=== PATIENT | male | born 1970 | race Caucasian/White ===

== ENCOUNTER → 2016-12-27 | Outpatient (CLI) | payer OTHER ==
[2016-12-27 17:29] LABS: BASO % 1.3 %; BASO ABS # 0.09 K/uL (0-0.2); COMPLETE YES; EOS % 1.6 %; HEMATOCRIT 44.4 % (42-52); IG% 0.4 %; LYMPH % 24.2 %; LYMPH ABS # 1.65 K/uL (1.2-3.4); MEAN CELL VOLUME 93.3 fL (80-100); MEAN CORPUSCULAR HEMOGLOBIN 30.3 pg (25-34); MEAN CORPUSCULAR HGB CONC 32.4 g/dl (32-36); MEAN PLATELET VOLUME 12.4 fL (7.4-10.4); MONO % 8.6 %; NEUT % 63.9 %; PLATELET COUNT 171 K/uL (130-400); RED BLOOD COUNT 4.76 M/uL (4.7-6.1); WHITE BLOOD COUNT 6.83 K/uL (4.8-10.8)
[2016-12-27 17:43] LABS: ALT/SGPT 28 U/L (12-78); AST/SGOT 14 U/L (15-37); BLOOD UREA NITROGEN 20 mg/dl (7-18); BUN/CREATININE RATIO 15.6 (10-20); CARBON DIOXIDE 30 mmol/L (21-32); CHLORIDE 110 mmol/L (98-107); GLUCOSE 114 mg/dl (70-99); POTASSIUM 4.8 mmol/L (3.5-5.1); SODIUM 144 mmol/L (136-145)
[2016-12-27 17:52] LABS: ALB/GLOB RATIO 1.3 (0.9-2); ALKALINE PHOSPHATASE 58 U/L (45-117); CHOLESTEROL 198 mg/dl (0-200); CHOLESTEROL/HDL RATIO 4.5; HDL CHOLESTEROL 44 mg/dl; LDL CHOLESTEROL CALCULATED 126 mg/dl; TRIGLYCERIDES 139 mg/dl (0-150); VERY LOW DENSITY LIPOPROT CALC 28 mg/dl
[2016-12-28 06:02] LABS: ESTIMATED AVERAGE GLUCOSE 120 mg/dl; HA1C FLAG Normal (Normal)
== END | disposition home or self-care (01) ==
LOC: C.LABBFT 12:36
PROVIDERS: ATTEND Physician Assistant Medical
DX: E78.5 Hyperlipidemia, unspecified (principal); R73.01 Impaired fasting glucose

== ENCOUNTER 2020-07-03 21:12 | Inpatient (IN) ==
--- NOTE | 2020-07-03 21:47 | Emergency Department Note ---
History of Present Illness General Chief complaint: Back Injury/Pain Stated complaint: BACK PAIN, NUMBNESS/PAIN IN LE Time Seen by Provider: 07/03/20 21:39 History of Present Illness Maximum Pain Intensity: 7 This 50-year-old presents to the ER complaining of low back pain that is getting worse with bilateral thigh perineum and genitalia numbness for the past 4 days who is had chronic back pain for quite some time and follows with Dr. Ambrose Location: Low back Quality: None Severity: Moderate Duration: 4 days Timing: Started 4 days ago Context: She was concerned and came in Modifying factors: better with rest; worse with activity patient had MRI 3 months ago. He has already been on a steroid taper. He has had a back injection with minimal improvement. Patient denies chest pain, dyspnea, fevers, IV drug abuse, leg weakness, loss of bowel bladder control. Home Medications Medication Instructions Recorded Confirmed Type amlodipine 5 mg tablet 5 mg PO HS #90 tab 03/14/20 07/03/20 Rx paroxetine HCl 20 mg tablet 20 mg PO HS #90 tab 03/14/20 07/03/20 Rx cyclobenzaprine 10 mg tablet 10 mg PO TID PRN #30 tab 06/22/20 07/03/20 Rx cetirizine [Zyrtec] 10 mg PO DAILY 07/03/20 07/03/20 History Allergies Allergy/AdvReac Type Severity Reaction Status Date / Time No Known Drug Allergies Allergy Verified 07/03/20 23:13 Past Med/Surg History Medical History Anxiety Asthma Hyperlipidemia Hypertension Impaired fasting glucose Lumbar disc disease Lumbar radiculopathy Rotator cuff tear, left Rotator cuff tear, right Sleep apnea Bipap Surgical History No history of previous surgery Family History Father Diabetes Atrial fibrillation Myocardial infarction Grandfather (Paternal) Diabetes Leukemia Other No family history of adverse response to anesthesia Denies family history of Ovarian cancer Prostate cancer Breast cancer Colorectal cancer Social History Smoking Status: Never smoker Cigarettes Per Day: 2 cigars per week; Second Hand Exposure: No; Hx Alcohol Use: Yes Alcohol type: beer Hx Substance Use: No Preferred Language: Ukrainian Communication Ability: Effective Visual Impairment: No Limitations Hearing Ability: Normal Lead Pastor Required: No Beliefs That Will Affect Care: None marital status: Current Living Situation: Spouse current occupational status: employed Feels Safe at Home: Yes caffeine: Yes during the past year weight has: remained stable Dental Care, Regularly: Yes Physical Activity Frequency: Does not Exercise Seatbelt Use: always Sunscreen Use: No Assistive Devices: BiPap Review of Systems A total of 10 systems reviewed and were otherwise negative Physical Exam Vital Signs Vital Signs - 24 hr 07/03/20 21:15 07/03/20 22:59 Temperature 37.4 C Temperature Source Oral Pulse Rate 108 H Pulse Rate [Apical] 88 Respiratory Rate 20 18 Respiratory Effort / Characteristics Non-Labored Spontaneous Respiratory Depth Normal Blood Pressure 190/105 H Blood Pressure [Right Arm] 171/101 H Blood Pressure Mean 133 Blood Pressure Mean [Right Arm] 124 Pulse Oximetry 97 99 Oxygen Delivery Method Room Air Room Air Sepsis Recent Fever Within 48 Hours No Sepsis New/Unexplained Change in Mental Status No Sepsis Action Taken by Nursing No Action Required VITALS: Vitals are noted on the nurse's note and reviewed by myself. Vital signs stable. GENERAL: Pleasant male moving all extremities, in no acute distress, nondiaphoretic, well-developed well-nourished. SKIN: Capillary reflex less than 2 seconds. HEENT: Normocephalic. PERRLA. EOMI. Nares patent. Mucous membranes moist. Neck is supple without nuchal rigidity. HEART: Regular rate and rhythm without murmurs gallops or rubs. LUNGS: Clear to auscultation bilaterally without wheezes, rales or rhonchi. No retractions or accessory muscle use. ABDOMEN: Positive bowel sounds x 4. Normal tympanic percussion. Soft, nontender, without masses or organomegaly. Flores sign negative. No guarding or rebound tenderness. MUSCULOSKELETAL: No gross musculoskeletal defects. No thoracic or lumbar tenderness on exam. Negative straight leg raise bilateral. Patient can plantarflex and dorsiflex. NEURO: Patient was alert and oriented to person place and time. Subjective decreased feeling to the thighs genitalia. Deep tendon reflexes 2+ patella bilaterally. No focal neurological deficits. Course Administered Medications Discontinued Medications Dexamethasone (Dexamethasone Sod Inj 10 Mg/Ml Vial) 8 mg IV NOW ONE Stop: 07/03/20 23:10 Last Admin: 07/03/20 23:18 Dose: 8 mg Documented by: [id number] Medical Decision Making Medical Records Attestation: I reviewed the patient's medical records. Home Medications Current Medication List: was personally reviewed by me Laboratory Data Attestation: I reviewed the patient's lab results. Result diagrams: 07/03/20 21:50 07/03/20 21:50 Lab Results 07/03/20 07/03/20 07/03/20 Range/Units 21:50 21:50 22:50 WBC 9.61 (4.8-10.8) K/uL RBC 4.42 L (4.7-6.1) M/uL Hgb 13.8 L (14.0-18.0) g/dL Hct 42.0 (42-52) % MCV 95.0 (80-100) fL MCH 31.2 (25-34) pg MCHC 32.9 (32-36) g/dL RDW Std Deviation 50.8 H (36.4-46.3) fL RDW Coeff of Elizabeth 14.6 H (11.5-14.5) % Plt Count 182 (130-400) K/uL MPV 11.2 H (7.4-10.4) fL Immature Gran % (Auto) 0.6 % Neut % (Auto) 76.2 % Lymph % (Auto) 15.3 % Bee % (Auto) 6.8 % Eos % (Auto) 0.8 % Baso % (Auto) 0.3 % Neut # (Auto) 7.32 H (1.4-6.5) K/uL Lymph # (Auto) 1.47 (1.2-3.4) K/uL Bee # (Auto) 0.65 H (0.11-0.59) K/uL Eos # (Auto) 0.08 (0-0.5) K/uL Baso # (Auto) 0.03 (0-0.2) K/uL Immature Gran # (Auto) 0.06 H (0.00-0.02) K/uL Sodium 140 (136-145) mmol/L Potassium 4.1 (3.5-5.1) mmol/L Chloride 109 H (98-107) mmol/L Carbon Dioxide 27 (21-32) mmol/L Anion Gap 3.0 (3-11) BUN 27 H (7-18) mg/dl Creatinine 1.06 (0.6-1.4) mg/dl Est Cr Clr Drug Dosing 105.8 ml/min Est GFR ( Amer) 93.7 Est GFR (Non-Af Amer) 80.9 BUN/Creatinine Ratio 25.7 H (10-20) Glucose 113 H (70-99) mg/dl Calcium 8.7 (8.5-10.1) mg/dl Total Bilirubin 0.4 (0.2-1) mg/dl AST 13 L (15-37) U/L ALT 21 (12-78) U/L Alkaline Phosphatase 57 (45-117) U/L Total Creatine Kinase 183 (39-308) U/L Total Protein 6.3 L (6.4-8.2) gm/dl Albumin 3.5 (3.4-5.0) gm/dl Globulin 2.8 (2.5-4.0) gm/dl Albumin/Globulin Ratio 1.2 (0.9-2) Urine Color Yellow Urine Appearance Turbid A (Clear) Urine pH 7.0 (4.5-7.5) Ur Specific [place] 1.025 (1.000-1.030) Urine Protein Negative (Negative) Urine Glucose (UA) Negative (Negative) Urine Ketones Negative (Negative) Urine Blood Negative (Negative) Urine Nitrite Negative (Negative) Urine Bilirubin Negative (Negative) Urine Urobilinogen Negative (Negative) Ur Leukocyte Esterase Negative (Negative) Urine WBC (Auto) 1-5 (0-5) /hpf Urine RBC (Auto) 0-4 (0-4) /hpf U Hyaline Cast (Auto) 1-5 (0-5) /lpf U Epithel Cells (Auto) 5-10 H (0-5) /lpf Urine Bacteria (Auto) Negative (Negative) Imaging Data Attestation: I personally reviewed and interpreted this imaging study as follows: MDM Narrative Prior records/ancillary studies reviewed. Triage Nursing notes reviewed. Additional history obtained from nursing. The patient's history was concerning for back pain. Differential diagnosis: Etiologies such as musculoskeletal, disc herniation, fracture, aortic disease, metastatic disease, cord compression, discitis, infection, renal colic, gastrointestinal, acute exacerbation of chronic back pain, sciatica, cauda equina, as well as others were entertained. Physical findings: As above. No focal neurologic findings noted. ER treatment provided: Patient was observed On reassessment the patient felt better. Diagnostics interpreted by me: The labs revealed mild hyperglycemia that DKA. Creatinine 1. No leukocytosis Imaging studies: MRI L SPINE : There is a large central/left central disc extrusion at L4-L5 with inferior migration along the posterior margin of the L5 vertebral body, resulting in effacement of the thecal sac and severe spinal stenosis at this level. Small disc bulges noted at L3-L4 and L5-S1 without high-grade spinal stenosis. No high-grade neural foraminal stenosis. Radiologist: Olimpia Ramirez M.D. MRI OF THE LUMBAR SPINE WITHOUT CONTRAST CLINICAL HISTORY: M54.5 - Low back pain COMPARISON STUDY: Lumbar spine radiographs April 14, 2020. TECHNIQUE: Utilizing a 1.5 Francine magnet and dedicated coil, multiplanar, multiecho imaging of the lumbar spine was performed without IV contrast. FINDINGS: For purposes of numbering on this exam, the L5-S1 disc space is assigned to ax ial image 23 of 25. Alignment of the lumbar spine is anatomic. Vertebral body heights are maintained. There is no suspicious marrow replacement. Several Schmorl's nodes are noted. Exam is mildly compromised by artifact. There is prominent epidural fat within the lumbar and sacral canals. The conus terminates at the T12-L1 level. Paravertebral soft tissues are unremarkable. L1-2: The central canal and neural foramen are patent. L2-3: There is mild facet arthrosis. The central canal and neural foramen are patent. L3-4: There is disc bulge with a tiny central disc protrusion. There is facet ar throsis and ligamentous hypertrophy. There is mild narrowing of the central canal and lateral recesses. The neural foramen are patent. L4-5: Note is made of a disc bulge with superimposed left paracentral disc protrusion. This results in severe narrowing of the central canal and left lateral recess. Patent canal measures 3.8 mm in AP diameter. There is also moderate narrowing of the right lateral recess and both neural foramen. L5-S1: There is disc space narrowing with disc bulge and superimposed small central disc protrusion with annular tear. There is mild narrowing of the central canal and lateral recesses as well as both neural foramen. IMPRESSION: 1. Severe narrowing of the central canal and left lateral recess at L4-L5 due to disc bulge with superimposed left paracentral disc protrusion, facet arthrosis and ligamentous hypertrophy. 2. Central canal narrowing at L3-L4 and L5-S1. 3. No lumbar spine fracture. ACT 112: Negative or not required by law. Consultation: A consultation was placed with orthospineMONO the case was discussed and diagnostics were reviewed. She recommends q. 8 mg of Decadron for 24 hours and medical admission and spine will see the patient in the morning. I spoke to hospitalist, Dr. Alvarez and will evaluate the patient for admission. This appears to be consistent with lumbar radiculopathy with concerns for decreased sensation to the perineum. Patient will be admitted to medicine. Patient started on steroids per orthopedic spines request. Patient is agreeable. Patient was able to ambulate. He was moving all extremities. No acute changes on the MRI.. By the evaluation outlined above emergent etiologies such as fracture, aortic disease, metastatic disease, infection, renal colic, gastrointestinal, cord compression, cauda equina, as well as others were deemed relatively unlikely. The pt informed about the findings as listed above. All questions were answered and pleased with the treatment. The chart was completed utilizing [employer] Speech voice recognition software. Grammatical errors, random word insertions, pronoun errors, and incomplete sentences are an occassional consequence of this system due to software limitations, ambient noise, and hardware issues. Any formal questions or concerns about the content, text, or information contained within the body of this dictation should be directly addressed to the physician ophthalmology assistant for clarification. Impression & Plan Lumbar radiculopathy, Paresthesias Discharge Plan Visit Data Chief Complaint: Back Injury/Pain Stated Complaint: BACK PAIN, NUMBNESS/PAIN IN LE ED Provider: Tl Hunter ED Midlevel Provider: Alisha Atkinson Discharge Problem: Lumbar radiculopathy, Paresthesias Patient Disposition: Admitted As Inpatient Condition: Good Forms Stand Alone Forms: My [facility] [employer] Prescriptions Prescriptions: No Action cyclobenzaprine 10 mg tablet 10 mg PO TID PRN (Reason: muscle spasm) Qty: 30 RF: 1 paroxetine HCl 20 mg tablet 20 mg PO HS Qty: 90 RF: 3 amlodipine 5 mg tablet 5 mg PO HS Qty: 90 RF: 3 cetirizine [Zyrtec] 10 mg Tablet 10 mg PO DAILY RF: 0 Referrals Referrals: Celestino Acevedo III, MD [Primary Care Provider] -
[2020-07-03 22:05] LABS: Basophils # (auto) 0.03 K/uL (0-0.2); Basophils % (auto) 0.3 %; Eosinophils # (auto) 0.08 K/uL (0-0.5); Eosinophils % (auto) 0.8 %; Hemoglobin 13.8 g/dL (14.0-18.0); Immature Granulocytes # (auto) 0.06 K/uL (0.00-0.02); Immature Granulocytes % (auto) 0.6 %; Lymphocytes # (auto) 1.47 K/uL (1.2-3.4); Lymphocytes % (auto) 15.3 %; Mean Corpuscular Hemoglobin 31.2 pg (25-34); Mean Corpuscular Hgb Conc 32.9 g/dL (32-36); Mean Platelet Volume 11.2 fL (7.4-10.4); Monocytes # (auto) 0.65 K/uL (0.11-0.59); Monocytes % (auto) 6.8 %; Neutrophils # (auto) 7.32 K/uL (1.4-6.5); Neutrophils % (auto) 76.2 %; Platelet Count 182 K/uL (130-400); RDW Coefficient of Variation 14.6 % (11.5-14.5); RDW Standard Deviation 50.8 fL (36.4-46.3); Red Blood Count 4.42 M/uL (4.7-6.1); White Blood Count 9.61 K/uL (4.8-10.8)
[2020-07-03 22:23] LABS: Albumin Level 3.5 gm/dl (3.4-5.0); BUN Creatinine Ratio 25.7 (10-20); Calcium 8.7 mg/dl (8.5-10.1); Creatinine Clr Calc Pharmacy 105.8 ml/min; Est GFR (African American) 93.7; Est GFR (Non-African American) 80.9; Potassium 4.1 mmol/L (3.5-5.1)
[2020-07-03 22:26] LABS: Albumin Globulin Ratio 1.2 (0.9-2); Bilirubin,Total 0.4 mg/dl (0.2-1); Globulin 2.8 gm/dl (2.5-4.0); Total Protein 6.3 gm/dl (6.4-8.2)
[2020-07-03 23:02] LABS: Appearance Urine Turbid (Clear); Bacteria Urine Automated Negative (Negative); Bilirubin Urine Negative (Negative); Blood Urine Negative (Negative); Color Urine Yellow; Glucose Urine UA Negative (Negative); Ketones Urine Negative (Negative); Leukocyte Esterase Urine Negative (Negative); Nitrite Urine Negative (Negative); Protein Urine Negative (Negative); RBC Urine Automated 0-4 /hpf (0-4); Specific Gravity Urine 1.025 (1.000-1.030); Urobilinogen Urine Negative (Negative)
[2020-07-03] MEDS ORDERED: DEXAMETHASONE SOD INJ 10 MG/ML VIAL IV ONE (23:09)
--- NOTE | 2020-07-04 01:08 | History & Physical Report ---
Date of Service July 04, 2020 Assessment & Plan (1) Lumbar radiculopathy: 50yo C male with history of HTN, chronic progressive LBP presenting with 4 days of radicular symptoms - numbness/tingling in L4-S1 distribution corresponding with large central/left central disc extrusion at L4-L5 with inferior migration noted on MRI of the L spine today. -Admit to medical/surgica -Neuro checks q shift -Continue Dexamethason 8mg IV q 8 hours x 24 hours -Currently without pain -Ortho-Spine consultation appreciated -Will keep NPO for now for possible OR Present on Admission?: Yes (2) Hypertension: Hypertensive at 153/86 currently -Continue Amlodipine 5mg po qHS -Continue to monitor Present on Admission?: Yes (3) Sleep apnea: Chronic -BiPAP qHS Present on Admission?: Yes (4) Impaired fasting glucose: Continue to monitor. BSG qAC/qHS while on steroids F/E/N - LR at 125mL/hr x 2 liters, electrolytes WNL, NPO for now Ppx - low risk for DVT, SCDs Code -Full Dispo - Admit to medical Present on Admission?: Yes History of Present Illness Chief Complaint: Back pain, numbness and tingling Primary Care Provider: Celestino Acevedo MD Tl Vega is a pleasant 50yo C male presenting with worsening numbness and tingling in the setting of chronic back pain. Patient reports that over the last 3-4 months he has been experiencing worsening low back pain. He saw his PCP for this issue on 04/11/20 and was given a 12 day prednisone taper. He reported fairly rapid improvement in his symptoms at that time. He was seen by Orthopedics on 05/19/20 and was treated with two additional courses of steroids. He had caudal epidural steroid injection performed on 06/16/[address] Thompson from Pain Management. He reports that over the last 4 days he has had improvement in the pain but has developed significant numbness of the lateral LLE starting from the hip and extending to lateral toes. He reports decreased perineal sensation and decreased sensation with urination. He reports constipation and possibly some fecal retention, difficulty passing stool. Denies weakness of the legs or imbalance. No history of trauma. No history of infection, IVDU. Not on anticoagulation. No additional complaints at this time. ER Course: Dexamethasone 8mg IV. ER discussed with Ortho-Spine - recommended admission to medical service, continued steroids and surgical assessment in AM Allergies Allergy/AdvReac Type Severity Reaction Status Date / Time No Known Drug Allergies Allergy Verified 07/03/20 23:13 Home Medications Medication Instructions Recorded Confirmed Type amlodipine 5 mg tablet 5 mg PO HS #90 tab 03/14/20 07/03/20 Rx paroxetine HCl 20 mg tablet 20 mg PO HS #90 tab 03/14/20 07/03/20 Rx cyclobenzaprine 10 mg tablet 10 mg PO TID PRN #30 tab 06/22/20 07/03/20 Rx cetirizine [Zyrtec] 10 mg PO DAILY 07/03/20 07/03/20 History Past Med/Surg History Medical History Anxiety Asthma Hyperlipidemia Hypertension Impaired fasting glucose Lumbar disc disease Lumbar radiculopathy Rotator cuff tear, left Rotator cuff tear, right Sleep apnea Bipap Surgical History No history of previous surgery Family History Father Diabetes Atrial fibrillation Myocardial infarction Grandfather (Paternal) Diabetes Leukemia Other No family history of adverse response to anesthesia Denies family history of Ovarian cancer Prostate cancer Breast cancer Colorectal cancer Social History Smoking Status: Never smoker Cigarettes Per Day: 2 cigars per week; Second Hand Exposure: No; Hx Alcohol Use: Yes Alcohol type: beer Hx Substance Use: No Preferred Language: Hong Konger Communication Ability: Effective Visual Impairment: No Limitations Hearing Ability: Normal Financial Director Required: No Beliefs That Will Affect Care: None marital status: Current Living Situation: Spouse current occupational status: employed Feels Safe at Home: Yes caffeine: Yes during the past year weight has: remained stable Dental Care, Regularly: Yes Physical Activity Frequency: Does not Exercise Seatbelt Use: always Sunscreen Use: No Assistive Devices: BiPap Review of Systems Review of Systems: All systems reviewed & are unremarkable except as noted in HPI & below Physical Exam Physical Exam: General: patient resting comfortably, NAD, non-toxic in appear ance, AA&O x 4 Skin: warm, dry, intact, no rashes or lesions HEENT: NC/AT, PERRL, EOMI, anicteric sclera, conjunctiva without injection, external ear normal to inspection and nontender, nares patent, moist mucus membranes, dentition intact, no oropharyngeal lesions, neck supple, trachea midline, no LAD, no thyromegaly, no JVD Heart: +S1/S2, regular, no m/r/g Lungs: equal air entry bilaterally, no rales/rhonchi/wheezes Abd: +BS, soft, NT/ND, no masses/organomegaly/ascites Ext: warm, 2+ pulses in UE/LE bilaterally, no clubbing/cyanosis or edema Neuro: AA&O x 4, MS 5/5 in UE/LE bilaterally, patellar reflexes of LE intact bilaterally, no clonus, diminished sensation to light touch of LLE on anterior/lateral thigh, anterior/lateral leg and dorsum of left foot - most consistent with L4-S1 distribution Results & Data Results & Data ([facility]) Vital Signs (Past 12 Hours) Vital Signs Temp Pulse Pulse Resp BP BP Pulse Ox 07/04/20 00:44 78 18 153/86 H 98 07/03/20 22:59 88 18 171/101 H 99 07/03/20 21:15 37.4 C 108 H 20 190/105 H 97 Laboratory Results Lab Results 07/03/20 07/03/20 07/03/20 Range/Units 21:50 21:50 22:50 WBC 9.61 (4.8-10.8) K/uL RBC 4.42 L (4.7-6.1) M/uL Hgb 13.8 L (14.0-18.0) g/dL Hct 42.0 (42-52) % MCV 95.0 (80-100) fL MCH 31.2 (25-34) pg MCHC 32.9 (32-36) g/dL RDW Std Deviation 50.8 H (36.4-46.3) fL RDW Coeff of Elizabeth 14.6 H (11.5-14.5) % Plt Count 182 (130-400) K/uL MPV 11.2 H (7.4-10.4) fL Immature Gran % (Auto) 0.6 % Neut % (Auto) 76.2 % Lymph % (Auto) 15.3 % [place] % (Auto) 6.8 % Eos % (Auto) 0.8 % Baso % (Auto) 0.3 % Neut # (Auto) 7.32 H (1.4-6.5) K/uL Lymph # (Auto) 1.47 (1.2-3.4) K/uL [place] # (Auto) 0.65 H (0.11-0.59) K/uL Eos # (Auto) 0.08 (0-0.5) K/uL Baso # (Auto) 0.03 (0-0.2) K/uL Immature Gran # (Auto) 0.06 H (0.00-0.02) K/uL Sodium 140 (136-145) mmol/L Potassium 4.1 (3.5-5.1) mmol/L Chloride 109 H (98-107) mmol/L Carbon Dioxide 27 (21-32) mmol/L Anion Gap 3.0 (3-11) BUN 27 H (7-18) mg/dl Creatinine 1.06 (0.6-1.4) mg/dl Est Cr Clr Drug Dosing 105.8 ml/min Est GFR ( Amer) 93.7 Est GFR (Non-Af Amer) 80.9 BUN/Creatinine Ratio 25.7 H (10-20) Glucose 113 H (70-99) mg/dl Calcium 8.7 (8.5-10.1) mg/dl Total Bilirubin 0.4 (0.2-1) mg/dl AST 13 L (15-37) U/L ALT 21 (12-78) U/L Alkaline Phosphatase 57 (45-117) U/L Total Creatine Kinase 183 (39-308) U/L Total Protein 6.3 L (6.4-8.2) gm/dl Albumin 3.5 (3.4-5.0) gm/dl Globulin 2.8 (2.5-4.0) gm/dl Albumin/Globulin Ratio 1.2 (0.9-2) Urine Color Yellow Urine Appearance Turbid A (Clear) Urine pH 7.0 (4.5-7.5) Ur Specific [place] 1.025 (1.000-1.030) Urine Protein Negative (Negative) Urine Glucose (UA) Negative (Negative) Urine Ketones Negative (Negative) Urine Blood Negative (Negative) Urine Nitrite Negative (Negative) Urine Bilirubin Negative (Negative) Urine Urobilinogen Negative (Negative) Ur Leukocyte Esterase Negative (Negative) Urine WBC (Auto) 1-5 (0-5) /hpf Urine RBC (Auto) 0-4 (0-4) /hpf U Hyaline Cast (Auto) 1-5 (0-5) /lpf U Epithel Cells (Auto) 5-10 H (0-5) /lpf Urine Bacteria (Auto) Negative (Negative) Diagnostic Findings MRI L Spine: Per STAT-rad: There is a large central/left central disc extrusion at L4-L5 with inferior migration along the posterior margin of the L5 vertebral body, resulting in effacement of the thecal sac and severe spinal stenosis at this level. Small disc bulges noted at L3-L4 and L5-S1 without high grade spinal stenosis. No high -grade neural foraminal stenosis PG Care Time/CCT Total # of Minutes Spent Total Time Spent with Patient: Total time spent is greater than 50% in coordination of care (as documented) at patient's floor/unit and/or counseling patient: Coding Level of Care Code 71434 Initial Inpt Care Lvl 3 Diagnoses Lumbar radiculopathy M54.16 Hypertension I10 Hypertension type: essential hypertension Sleep apnea G47.30 Sleep apnea type: unspecified type Impaired fasting glucose R73.01 (1) Hypertension Hypertension type: essential hypertension Qualified Code(s): I10 - Essential (primary) hypertension (2) Sleep apnea Sleep apnea type: unspecified type Qualified Code(s): G47.30 - Sleep apnea, unspecified
[2020-07-04] MEDS ORDERED: DOCUSATE SODIUM 100 MG CAP PO PRN (02:47)
[2020-07-04] MEDS ORDERED: CYCLOBENZAPRINE HCL 10 MG TAB PO PRN (02:47)
[2020-07-04] MEDS ORDERED: ACETAMINOPHEN 325 MG TAB PO PRN (02:47)
[2020-07-04] MEDS: LACTATED RINGER'S 1,000 ML IV SCH ×3 (03:23→17:49)
[2020-07-04] MEDS ORDERED: DEXAMETHASONE SOD INJ 4 MG/ML VIAL IV SCH (07:00)
[2020-07-04 07:15] LABS: INR 1.1 (0.9-1.1); Prothrombin Time 11.4 Seconds (9.0-12.0)
[2020-07-04] MEDS ORDERED: INFLUENZA VIRUS QUAD VACCINE 0.5 ML SYR IM ONE (08:00)
[2020-07-04] MEDS ORDERED: INFLUENZA ADMINISTRATION CHARGE ONE (08:00)
--- NOTE | 2020-07-04 08:41 | Magnetic Resonance Report ---
MRI OF THE LUMBAR SPINE WITHOUT CONTRAST CLINICAL HISTORY: LBP, numbness to perinuem and B thighs COMPARISON STUDY: Lumbar spine MRI May 09, 2020. TECHNIQUE: Utilizing a 1.5 Francine magnet and dedicated coil, multiplanar, multiecho imaging of the [facility] spine was performed without IV contrast. FINDINGS: For purposes of numbering on this exam, the L5-S1 disc space is assigned to axial image 30 of 33. Ali gnment of the lumbar spine is anatomic. Vertebral body heights are maintained. There are multiple Ousmane morl's nodes. Conus terminates at the T12-L1 level. Exam is compromised by artifact. Paravertebral so ft tissues are unremarkable. There is no suspicious marrow replacement. L1-2: The central canal and neural foramen are patent. L2-3: The central canal and neural foramen are patent. L3-4: Note is made of a disc bulge with small superimposed central disc protrusion. There is mild linda rowing of the central canal and lateral recesses. The neural foramen are patent. L4-5: Note is made of disc bulge with superimposed large left paracentral disc extrusion which has in creased in size since MRI of May 09, 2020. There is inferior subligamentous migration of the di sc herniation. This results in marked narrowing of the central canal and left lateral recess. Patent AP diameter of the canal is approximately 1.8 mm. There is mild narrowing of both neural foramen. L5-S1: Note is made of disc bulge with small superimposed central disc protrusion. There is mild narr owing of the central canal and both lateral recesses as well as both neural foramen at this level. IMPRESSION: 1. Severe central canal stenosis at L4-L5 due to disc bulge with large superimposed left paracentral disc extrusion with inferior subligamentous migration which has increased in size since MRI May 09, 2020. Spine surgical consultation is recommended. 2. Small disc protrusions at L3-L4 and L5-S1 which result in mild narrowing of the central canal and lateral recesses at these levels. ACT 112: Negative or not required by law. Electronically signed by: Skip Menjivar M.D. 07/04/2020 8:40 AM
--- NOTE | 2020-07-04 09:23 | Orthopedic Consultation ---
Date of Consultation July 04, 2020 Assessment & Plan (1) Paresthesias: At this time patient has not an updated MRI demonstrating a massive increase in the disc herniation at the L4-L5 level with caudal migration and severe stenosis of the canal. He presents with evidence of cauda equina symptoms. Subsequently recommending urgent decompression and fusion. He would require complete discectomy of L4-5 and because of the advanced breakdown of disproportionate L5-S1 I am recommending we address this level as well. This would allow for safe decompression eradication of the disc and hopefully some recovery of his neural function. Risk benefits pros cons and alternatives were outlined in detail. Risk include but not limited to from anesthesia blindness stroke paralysis nerve damage blood loss current transfusion infection requiring reoperation. I am recommending surgery to be performed as soon as possible. Present on Admission?: Yes History of Present Illness Reason for Consultation: Back bilateral leg pain with perineal numbness Attending Physician: Barrett Lee, DO History of Present Illness This is a 50-year-old male well-known to me having seen him in the past with acute disc herniation. He states over the past 4 days he has a severe onset of the leg pain with numbness extending from the waist down involving the bilateral thighs extending down into the left foot. He has had marked difficulty with ambulation relation. He has marked difficulty with urination. He is not lost control with urination. He does have symptoms of urinary retention. He has had no loss of bowels. He describes approximately 10% of it feeling in his perineal area. He notes marked limitation with ambulation. Is undergone epidural injection earlier this fall. This provided minimal relief. Allergies Allergy/AdvReac Type Severity Reaction Status Date / Time No Known Drug Allergies Allergy Verified 07/03/20 23:13 Home Medications Medication Instructions Recorded Confirmed Type amlodipine 5 mg tablet 5 mg PO HS #90 tab 03/14/20 07/03/20 Rx paroxetine HCl 20 mg tablet 20 mg PO HS #90 tab 03/14/20 07/03/20 Rx cyclobenzaprine 10 mg tablet 10 mg PO TID PRN #30 tab 06/22/20 07/03/20 Rx cetirizine [Zyrtec] 10 mg PO DAILY 07/03/20 07/03/20 History Patient History Medical History Anxiety Asthma Hyperlipidemia Hypertension Impaired fasting glucose Lumbar disc disease Lumbar radiculopathy Rotator cuff tear, left Rotator cuff tear, right Sleep apnea Bipap Surgical History No history of previous surgery Family History Father Diabetes Atrial fibrillation Myocardial infarction Grandfather (Paternal) Diabetes Leukemia Other No family history of adverse response to anesthesia Denies family history of Ovarian cancer Prostate cancer Breast cancer Colorectal cancer Social History Smoking Status: Never smoker Cigarettes Per Day: 2 cigars per week; Second Hand Exposure: No; Hx Alcohol Use: Yes Alcohol type: beer Hx Substance Use: No Preferred Language: Turkmen Communication Ability: Effective Visual Impairment: No Limitations Hearing Ability: Normal Slabber Light Required: No Beliefs That Will Affect Care: None marital status: Current Living Situation: Spouse current occupational status: employed Feels Safe at Home: Yes caffeine: Yes during the past year weight has: remained stable Dental Care, Regularly: Yes Physical Activity Frequency: Does not Exercise Seatbelt Use: always Sunscreen Use: No Assistive Devices: None Physical Exam Physical Exam: On exam patient is severe tension signs straight leg raising bilaterally. A stiff cyst extensor pollicis longus on the left compared to the right. His quadriceps and plantar flexion appear to be 5 or 5 bilaterally. Deep tendon reflexes are diminished. He is able to stand but is markedly uncomfortable and has difficulty with ambulation. He has dense numbness to touch around the perineal area and upper thighs. Results & Data ([facility]) Vital Signs (Past 12 Hours) Vital Signs Temp Pulse Pulse Resp BP BP Pulse Ox 07/04/20 07:14 36.4 C L 80 20 143/88 H 97 07/04/20 03:10 158/99 H 07/04/20 02:55 36.7 C 81 18 177/113 H 178/120 H 98 07/04/20 02:12 77 18 136/87 99 07/04/20 00:44 78 18 153/86 H 98 07/03/20 22:59 88 18 171/101 H 99
[2020-07-04] MEDS: DEXAMETHASONE SOD PHOSPHATE 8 MG in SYRINGE 0 ML IV SCH ×3 (09:31→23:46)
[2020-07-04] MEDS ORDERED: fentaNYL citrate 100 MCG/2 ML VIAL ONE ×2 (10:40→13:10)
[2020-07-04] MEDS ORDERED: MIDAZOLAM HCL 1 MG/ML 2ML VIAL ONE (10:40)
--- NOTE | 2020-07-04 11:07 | Anesthesiology Consultation ---
Date of Service July 04, 2020 Assessment & Plan (1) Encounter for pre-operative examination: Chart Review Chart Review: Acceptable Risk for Surgery History Surgery Operation Date: 07/04/20 09:15 Proposed Procedures p L4-L5 Transforaminal Lumbar Interbody Fusion - Juwan Ambrose DO Height/Weight Height: 5 ft 11 in Weight: 111.7 kg Allergies Allergy/AdvReac Type Severity Reaction Status Date / Time No Known Drug Allergies Allergy Verified 07/03/20 23:13 Medications Home Medications Medication Instructions Recorded Confirmed Last Taken amlodipine 5 mg tablet 5 mg PO HS #90 tab 03/14/20 07/03/20 Unknown paroxetine HCl 20 mg tablet 20 mg PO HS #90 tab 03/14/20 07/03/20 Unknown cyclobenzaprine 10 mg tablet 10 mg PO TID PRN #30 tab 06/22/20 07/03/20 Unknown cetirizine [Zyrtec] 10 mg PO DAILY 07/03/20 07/03/20 Unknown Active Medications Generic Name Dose Route Start Last Admin Trade Name Freq PRN Reason Stop Dose Admin Lactated Ringer's 1,000 mls @ 125 mls/hr 07/04/20 03:15 07/04/20 06:52 Lr IV 07/04/20 19:14 125 mls/hr .Q8H CARLOS Infusion Dexamethasone Sodium Phosphate 2 mls @ 1 mls/min 07/04/20 08:00 07/04/20 09:31 8 mg/ Syringe IV 08/03/20 07:59 1 mls/min Q8H CARLOS Administration NPO Date Last Intake of Fluids: 07/03/20 Time Last Intake of Fluids: 21:00 Date Last Intake of Solids: 07/03/20 Time Last Intake of Solids: 21:00 Past Medical History Medical History Anxiety Asthma Hyperlipidemia Hypertension Impaired fasting glucose Lumbar disc disease Lumbar radiculopathy Rotator cuff tear, left Rotator cuff tear, right Sleep apnea Bipap Past Family History Family History Father Diabetes Atrial fibrillation Myocardial infarction Grandfather (Paternal) Diabetes Leukemia Other No family history of adverse response to anesthesia Denies family history of Ovarian cancer Prostate cancer Breast cancer Colorectal cancer Past Surgical History Surgical History No history of previous surgery Social History Smoking Status: Never smoker tobacco type: cigars Smoking cigarettes per day: 2 cigars per week Do You Dip or Chew Tobacco: No Hx Alcohol Use: Yes Alcohol type: beer alcohol intake frequency: holidays/special occasions only Hx Substance Use: No substance use type: does not use Physical Exam Vital Signs Last Vital Signs Temp 37 C 07/04/20 10:49 Pulse 83 07/04/20 10:49 Resp 18 07/04/20 10:49 BP 156/109 H 07/04/20 10:49 Pulse Ox 93 07/04/20 10:49 Testing Laboratory Results 07/03/20 21:50 07/03/20 21:50 PT 11.4 Seconds (9.0-12.0) 07/04/20 06:23 INR 1.1 (0.9-1.1) 07/04/20 06:23 Urine Color Yellow 07/03/20 22:50 Urine Appearance Turbid (Clear) A 07/03/20 22:50 Urine pH 7.0 (4.5-7.5) 07/03/20 22:50 Ur Specific Stuart 1.025 (1.000-1.030) 07/03/20 22:50 Urine Protein Negative (Negative) 07/03/20 22:50 Urine Glucose (UA) Negative (Negative) 07/03/20 22:50 Urine Ketones Negative (Negative) 07/03/20 22:50 Urine Nitrite Negative (Negative) 07/03/20 22:50 Ur Leukocyte Esterase Negative (Negative) 07/03/20 22:50 Urine WBC (Auto) 1-5 /hpf (0-5) 07/03/20 22:50 Urine RBC (Auto) 0-4 /hpf (0-4) 07/03/20 22:50 U Hyaline Cast (Auto) 1-5 /lpf (0-5) 07/03/20 22:50 U Epithel Cells (Auto) 5-10 /lpf (0-5) H 07/03/20 22:50 Urine Bacteria (Auto) Negative (Negative) 07/03/20 22:50
[2020-07-04] MEDS ORDERED: ATROPINE SULFATE 0.1 MG/ML 10ML SYR IV PRN (11:28)
[2020-07-04] MEDS ORDERED: HYDROmorphone INJ 1 MG/ML SYRINGE IV PRN ×2 (11:28→16:11)
[2020-07-04] MEDS ORDERED: ONDANSETRON INJ 2 MG/ML 2 ML VIAL IV PRN ×2 (11:28→16:11)
[2020-07-04] MEDS ORDERED: ceFAZolin 2,000 MG/15 ML IV PUSH IV ONE (11:50)
[2020-07-04] MEDS ORDERED: ceFAZolin 2000MG 2,000 MG/15 ML SYR IV ONE (11:56)
[2020-07-04] MEDS ORDERED: BACITRACIN INJ 50,000 UNIT VIAL ONE (12:00)
[2020-07-04] MEDS ORDERED: BUPIVACAINE/EPINEPHRINE 0.5% MPF 1:200,000 30 ML VIAL ONE (12:00)
[2020-07-04] MEDS ORDERED: HYDROmorphone INJ 2 MG/ML SYR/VIAL ONE (12:04)
[2020-07-04] MEDS ORDERED: PROPOFOL IV EMULSION 10 MG/ML 20 ML VIAL IV ONE (12:44)
[2020-07-04] MEDS ORDERED: LIDOCAINE HCL 2% 2 ML VIAL/AMP(20MG/ML) INFIL ONE (12:44)
[2020-07-04] MEDS ORDERED: ONDANSETRON INJ 2 MG/ML 2 ML VIAL ONE (12:44)
[2020-07-04] MEDS ORDERED: ROCURONIUM BROMIDE 10 MG/ML 5 ML VIAL IV ONE ×5 (12:44→13:48)
[2020-07-04] MEDS ORDERED: LARYING-O-JET KIT (LTA) ONE (12:44)
[2020-07-04] MEDS ORDERED: DEXAMETHASONE SOD INJ 4 MG/ML VIAL ONE (12:44)
[2020-07-04] MEDS ORDERED: FLOSEAL HEMOSTATIC MATRIX 10ML TOP ONE (12:55)
[2020-07-04] MEDS ORDERED: NEOSTIGMINE METHYLSULFATE 1 MG/ML 10ML VIAL ONE (13:49)
[2020-07-04] MEDS ORDERED: GLYCOPYRROLATE 0.2 MG/ML VIAL ONE (13:49)
[2020-07-04] MEDS ORDERED: PHENYLEPHRINE 100MCG/ML 5ML SYR ONE (13:49)
--- NOTE | 2020-07-04 14:02 | Hospitalist Progress Note ---
Date of Service July 04, 2020 Assessment & Plan (1) Cauda equina syndrome: Mr. Vega is a 50 yo M who known lumbar disc disease who presented with new onset numbness of the low back and left leg, along with urinary retention. Lumbar spine MRI on admission showing significant progression of L4-L5 disc herniation with caudal migration and severe stenosis of the canal. Patient was urgently taken to the OR today for decompression and fusion. - patient followed with Dr. Ambrose as an outpatient - underwent epidural injection this fall with only minimal relief - reported significant lumbar pain 4 days [employer] with new onset numbness, difficulty with ambulation, and urinary retention (red flag sign) - Lumbar spine MRI on admission showing significant progression of L4-L5 disc herniation with caudal migration and severe stenosis of the canal - Ortho/Spine consulted, s/p urgent decompression with complete discectomy at L4-L5 and L5-S1 with fusion; treated appropriately with intra-operative antibiotics, no complications - serial neuro exams to assess for returned function - pain control per ortho (2) Lumbar disc disease: - patient with known disc disease at L4-L5 and L5-S1 - progression noted on L-spine MRI on admission - s/p surgery as above (3) Hypertension: - continue home dose amlodipine (4) Anxiety: - continue home dose paroxetine Diet: clear liquid, advance as tolerated Dispo: Med/Surg Code: full DVT ppx: SCDs Admission and Anticipated Discharge Date Admission Date: July 04, 2020 Supervising Physician Co-Signing Physician Notes I personally examined the patient and verified all perez points of history and exam, discussed case, and agree with decision making with Dr Acosta. seen post op - sleeping comfortably. vitals noted to be stable, op notes noted. vitals noted nad sleeping comfortably breathing unlabored no accessory muscles good effort skin no rashes no pallor or icterus evolving cauda equina//lumbar disc disease/herniation - now appearing stable postop. supportive care, PT/OT once able. otherwise as above Subjective Patient denies any pain at present. He describes persistent numbness along the level of his belt line and down he left leg. Review of Systems Review of Systems: All systems reviewed & are unremarkable except as noted in HPI & below Physical Exam Constitutional: well developed, well nourished, + obese and cooperative; no acute distress Eyes: + anicteric sclerae ENMT: external ear and nose normal, oropharynx normal Neck: normal visual inspection and trachea midline Respiratory: normal respiratory effort, lungs clear to auscultation Cardiovascular: RRR, no murmur, no edema Heart Sounds: normal S1 and normal S2 Extremities: no pedal edema Gastrointestinal (Abdomen): normal bowel sounds, soft, nontender, no hepatosplenomegaly Musculoskeletal: Spine: no lumbar spinal tenderness and no paraspinal tenderness Skin: no rashes, warm and dry Neurologic: Motor/Sensory: + sensory deficit (Left LE, lateral aspect of foot. ) No saddle anesthesia Results & Data Results & Data ([facility]) Vital Signs (Past 12 Hours) Vital Signs Temp Pulse Pulse Resp BP BP Pulse Ox 07/04/20 10:49 37 C 83 18 156/109 H 93 07/04/20 07:14 36.4 C L 80 20 143/88 H 97 07/04/20 03:10 158/99 H 07/04/20 02:55 36.7 C 81 18 177/113 H 178/120 H 98 07/04/20 02:12 77 18 136/87 99 Resident Activity Tracking Resident Involvement: Resident Care Provided Care Provided: Adult Hospital Medicine (1) Hypertension Hypertension type: essential hypertension Qualified Code(s): I10 - Essential (primary) hypertension
--- NOTE | 2020-07-04 14:42 | Operative Report ---
Post Operative Report Pre & Post Diagnosis Operation Date: 07/04/20 09:15 Pre-Op Diagnosis: #1 cauda equina syndrome #2 herniated pulposis L4-5 L5-S1 Post-Op Diagnosis: Same I identified the patient and participated in the time-out.: Yes Procedure Operation Date: 07/04/20 09:15 Actual Procedures #1 lumbar decompression with bilateral medial facetectomies and foraminotomies L4-5 and L5-S1. 2 posterior spinal fusion L4-5 L5 S1. #3 placement posterior instrumentation L4-5 L5-S1. #4 interbody fusion L4-5 L5-S1. #5 placed a peek cage 12 x 26 mm at L4-5 and L5-S1. #6 placement locally harvested morselized autograft in the posterior gutters. #7 placement infuse collagen sponge, master graft in the posterior lateral gutters and ostial amp interbody space. Surgeon Juwan Ambrose, DO Immigration Associate Adilene Whittington Estimated Blood Loss 150 Findings See Below The patient is 5 foot 11 inches tall weighing over 111 kg with a BMI in excess of 34. The patient's body habitus did create significant technical difficulty adding least 50% increase to the operative time requiring her deepest retractors and longest instruments in order to perform his procedure. Specimens None Indications This is a 50-year-old male who presents with marked decline in status. He had perineal numbness changes in urinary patterns and radiculopathy. Subsequently chose to perform emergent decompression and fusion. Description of Procedure Patient was met with identified informed consent obtained. Patient was then taken to the operative suite underwent intubation placed in a prone position the Slim table on top of the Sg frame. All bony prominences well-padded eyes inspected to ensure no external pressure placed upon them. This point the lumbar spine was prepped and draped in normal sterile fashion. Sharp dissection with the assistance of Bovie cautery was performed down to and exposing the lamina and transverse processes of L4-L5 and sacral ala bilaterally. From a caudal cephalad fashion complete laminectomy of L5 and L4 was performed including bilateral medial facetectomies and foraminotomies noting severe neural compression. Massive amounts of free disc material were noted and removed. Pedicle screw was then placed in L4-L5 and S1 levels bilaterally with assistance of fluoroscopy the proper sized leonel placed. By way of a transfemoral approach on the left pleat discectomy L5-S1 was performed endplates curetted to subcortical mean bone and a 12 x 26 mm peek cage filled with osteobone graft tapped position. Then proceeded L4-[address] of a transforaminal approach a complete discectomy was performed endplates curetted to subcortically bone and a 12 x 26 mm peek cage filled with osteobone graft tapped in position. Rods were then locked in final position bilaterally. The transverse processes of L4-L5 and sacral ala burred to subcortical bleeding bone. Infuse collagen sponge mass graft local autograft was then placed in posterior gutters. 15 round GLORIA drain inserted. Incision was then closed with 1 Vicryl the fascia 2-0 Vicryl subcutaneously and 4 Monocryl for final skin closure. Steri-Strip sterile dressings placed. Patient waken taken to PACU stable condition. Please note spinal cord monitoring was utilized that the procedure no changes noted. Lastly Adilene Whittington was present at the entire surgery involved the patient positioning complex portions of the surgery and final skin closure. I attest to the content of the Intraoperative Record and any orders documented therein. Any exceptions are noted below.
--- NOTE | 2020-07-04 14:44 | Fluoroscopy Report ---
FL lumbar spine 2-3V CLINICAL HISTORY: L4-5 DECOMPRESSION/FUSION COMPARISON STUDY: Lumbar spine MRI July 03, 2020. Lumbar spine radiographs April 14, 2020. FLUOROSCOPY TIME: 29 seconds. FLUOROSCOPIC IMAGES: 2 FINDINGS: Fluoroscopy was provided during L4-L5 and L5-S1 discectomies with interbody spacer placemen t at these levels. Posterior decompression is noted. There are bilateral pedicle screws at the L4, L5 and S1 levels. IMPRESSION: Fluoroscopy provided during L4-S1 discectomies, posterior decompression and bilateral pe dicle screw fusion. ACT 112: Negative or not required by law. Electronically signed by: Skip Menjivar M.D. 07/04/2020 2:43 PM
[2020-07-04] MEDS: LABETALOL HCL IV 5 MG/ML 20ML IV PRN ×2 (15:12→15:22)
--- NOTE | 2020-07-04 15:38 | Anesthesiology Progress Note ---
Date of Service July 04, 2020 Anesthesia Post Procedure Vital Signs Vital Signs: Temp Pulse Pulse Pulse Resp BP BP 07/04/20 15:25 75 13 07/04/20 15:15 85 12 07/04/20 15:05 90 12 07/04/20 14:58 97.7 F 107 H 21 07/04/20 10:49 98.6 F 83 18 156/109 H 07/04/20 07:14 97.5 F L 80 20 07/04/20 03:10 07/04/20 02:55 98.1 F 81 18 177/113 H 07/04/20 02:12 77 18 07/04/20 00:44 78 18 07/03/20 22:59 88 18 07/03/20 21:15 99.3 F 108 H 20 190/105 H BP Pulse Ox 07/04/20 15:25 154/109 H 95 07/04/20 15:15 154/92 H 100 07/04/20 15:05 167/101 H 100 07/04/20 14:58 133/102 H 100 07/04/20 10:49 93 07/04/20 07:14 143/88 H 97 07/04/20 03:10 158/99 H 07/04/20 02:55 178/120 H 98 07/04/20 02:12 136/87 99 07/04/20 00:44 153/86 H 98 07/03/20 22:59 171/101 H 99 07/03/20 21:15 97 Pain Intensity Bilateral Posterior Leg: Pain Intensity: 4 Transfer of Care Handoff Completed per policy Notes Mental Status: alert / awake / arousable and participated in evaluation Patient Amnestic to Procedure: Yes Nausea / Vomiting: adequately controlled Pain: adequately controlled Airway Patency, RR, SpO2: stable & adequate BP & HR: stable & adequate Hydration State: stable & adequate Anesthetic Complications: no major complications apparent and Pt Satisfied with anesthetic care
[2020-07-04] MEDS ORDERED: bisacodyL 10 MG SUPP PR PRN (16:11)
[2020-07-04] MEDS ORDERED: HYDROmorphone INJ 0.5 MG/0.5 ML SYR IV PRN (16:11)
[2020-07-04] MEDS ORDERED: ACETAMINOPHEN 1,000 MG/100 ML VIAL IV PRN (16:11)
[2020-07-04] MEDS ORDERED: ALUMINUM/MAGNESIUM SUSP 30 ML UDC PO PRN (16:11)
[2020-07-04] MEDS ORDERED: hydrOXYzine HCl 25 MG TAB PO PRN (16:11)
[2020-07-04] MEDS ORDERED: traMADol HCL 50 MG TABLET PO PRN (16:11)
[2020-07-04] MEDS ORDERED: diphenhydrAMINE Capsule 25 MG CAP PO PRN (16:11)
[2020-07-04] MEDS ORDERED: SOD PHOSPHATE/SOD BIPHOSPHATE ENEMA 132 ML BTL PR PRN (16:11)
[2020-07-04] MEDS ORDERED: LORazepam 0.5 MG/1 ML VIAL IV PRN (16:11)
[2020-07-04] MEDS ORDERED: LORazepam 0.5 MG TAB PO PRN (16:11)
[2020-07-04] MEDS ORDERED: FAMOTIDINE 20 MG TAB PO PRN (16:11)
[2020-07-04] MEDS ORDERED: METOCLOPRAMIDE HCL INJ 5 MG/ML 2 ML VIAL IV PRN (16:11)
[2020-07-04] MEDS ORDERED: ACETAMINOPHEN 500 MG TAB PO PRN (16:11)
[2020-07-04] MEDS ORDERED: DO NOT ADMINISTER PNEUMOCOCCAL VACCINE PRN (16:11)
[2020-07-04] MEDS ORDERED: MAGNESIUM HYDROXIDE SUSP 30 ML UDC PO PRN (16:11)
[2020-07-04] MEDS ORDERED: ONDANSETRON 4 MG OD TAB PO PRN (16:11)
[2020-07-04] MEDS ORDERED: DO NOT ADMINISTER FLU VACCINE PRN (16:11)
[2020-07-04] MEDS ORDERED: NALOXONE HCL 0.4 MG/1 ML VIAL/CARP IV PRN (16:11)
[2020-07-04] MEDS ORDERED: PROMETHAZINE HCL 12.5 MG in SODIUM CHLORIDE 0.9% 50 ML IV PRN (16:11)
[2020-07-04] MEDS: KETOROLAC 30 MG/ML VIAL IV SCH ×2 (17:52→23:46)
--- NOTE | 2020-07-04 18:35 | Billing Data ---
Date of Service July 04, 2020 Coding Level of Care Code 28994 Subseq Hosp Care Lvl 2
[2020-07-04] MEDS: PARoxetine HCL 20 MG TAB PO SCH (20:14)
[2020-07-04] MEDS: DOCUSATE SODIUM/SENNA 50/8.6MG TAB PO SCH (20:14)
[2020-07-04] MEDS: amLODIPine BESYLATE 5 MG TAB PO SCH (20:14)
[2020-07-04] MEDS: ceFAZolin 2000MG 2,000 MG/15 ML SYR IV SCH (20:14)
[2020-07-05] MEDS: LACTATED RINGER'S 1,000 ML IV SCH ×2 (02:37→07:57)
[2020-07-05] MEDS: KETOROLAC 30 MG/ML VIAL IV SCH ×2 (05:05→11:10)
[2020-07-05] MEDS: ceFAZolin 2000MG 2,000 MG/15 ML SYR IV SCH (05:06)
[2020-07-05] MEDS: POLYETHYLENE (MIRALAX) 17 GM PACK PO SCH ×4 (05:06→23:58)
--- NOTE | 2020-07-05 06:06 | Electrocardiogram Report ---
Test Reason : Blood Pressure : / mmHG Vent. Rate : 082 BPM Atrial Rate : 082 BPM P-R Int : 138 ms QRS Dur : 112 ms QT Int : 392 ms P-R-T Axes : 031 031 053 degrees QTc Int : 457 ms Normal sinus rhythm Possible Inferior infarct , age undetermined Abnormal ECG When compared with ECG of 05-DEC-2004 15:06, Inferior infarct is now Present Nonspecific T wave abnormality now evident in Lateral leads QT has lengthened Confirmed by Otto Perera ([id number]) on 07/05/2020 6:05:58 AM Referred By: REFERRED SELF Confirmed By:Otto Perear
--- NOTE | 2020-07-05 07:07 | Hospitalist Progress Note ---
Date of Service July 05, 2020 Assessment & Plan (1) Cauda equina syndrome: Mr. Vega is a 50 yo M who known lumbar disc disease who presented with new onset numbness of the low back and left leg, along with urinary retention. Lumbar spine MRI on admission showing significant progression of L4-L5 disc herniation with caudal migration and severe stenosis of the canal. Patient was urgently taken to the OR yesterday for decompression and fusion. Today is POD 1, he is currently pain free and notes improved ability to urinate and improvement in his numbness. Patient will remain in hospital for one more day for continued post-operative monitoring and IV steroids. - patient followed with Dr. Ambrose as an outpatient - underwent epidural injection this fall with only minimal relief - reported significant lumbar pain 4 days [employer] with new onset numbness, difficulty with ambulation, and urinary retention (red flag sign) - Lumbar spine MRI on admission showing significant progression of L4-L5 disc herniation with caudal migration and severe stenosis of the canal - Ortho/Spine consulted, s/p urgent decompression with complete discectomy at L4-L5 and L5-S1 with fusion on 07/04; treated appropriately with intra-operative antibiotics, no complications. Currently POD 1. - continue IV dexamethasone - serial neuro exams to assess for returned function - pain control per ortho (2) Lumbar disc disease: - patient with known disc disease at L4-L5 and L5-S1 - progression noted on L-spine MRI on admission - s/p surgery as above (3) Hypertension: - continue home dose amlodipine (4) Sleep apnea: - CPAP qhs (5) Anxiety: - continue home dose paroxetine Diet: regular diet Dispo: Med/Surg Code: full DVT ppx: SCDs Admission and Anticipated Discharge Date Admission Date: July 04, 2020 Supervising Physician Co-Signing Physician Notes I personally examined the patient and verified all perez points of history and exam, discussed case, and agree with decision making with Dr Acosta. feeling good voiding well getting around well numbness receding. very pleased with progress. d/w ortho at the bedside as well. vitals noted nad heent nc at mmm breathing unlabored no accessory muscles good effort skin no rashes no pallor or icterus movign around well and without difficulty, stands steadily. evolving cauda equina//lumbar disc disease/herniation - doing very well post op. PT/OT, but strongly suspect he'll be able to go home in near future. steroids through today. pain control (although fortunately has not needed much!) otherwise as above Subjective No acute events overnight. Tolerating a regular diet. Patient is now urinating without difficulty. He reports improved sensation in his groin and R leg. He notes some persistent numbness along the lateral aspect of his left foot and on the back of is left left (over the hamstring). He is currently in no pain - has not asked for pain medication doses other than his scheduled Toradol. Review of Systems Neurologic: + numbness (as per HPI ) Physical Exam Constitutional: well developed, well nourished, + obese and cooperative; no acute distress Eyes: + anicteric sclerae ENMT: external ear and nose normal, oropharynx normal Neck: normal visual inspection and trachea midline Respiratory: normal respiratory effort, lungs clear to auscultation Cardiovascular: RRR, no murmur, no edema Heart Sounds: normal S1 and normal S2 Extremities: no pedal edema Gastrointestinal (Abdomen): normal bowel sounds, soft, nontender, no hepatosplenomegaly Musculoskeletal: Spine: no lumbar spinal tenderness and no paraspinal tenderness Skin: no rashes, warm and dry Neurologic: Motor/Sensory: + sensory deficit (Left LE, lateral aspect of foot. ) No saddle anesthesia Results & Data Results & Data ([facility]) Vital Signs (Past 12 Hours) Vital Signs Temp Pulse Pulse Resp BP Pulse Ox 07/05/20 06:53 36.9 C 89 16 122/73 99 07/05/20 02:57 36.8 C 67 18 134/87 98 07/05/20 02:18 69 18 97 07/05/20 00:25 74 18 99 07/04/20 22:59 36.8 C 84 16 113/66 97 Resident Activity Tracking Resident Involvement: Resident Care Provided Care Provided: Adult Hospital Medicine (1) Sleep apnea Sleep apnea type: unspecified type Qualified Code(s): G47.30 - Sleep apnea, unspecified (2) Hypertension Hypertension type: essential hypertension Qualified Code(s): I10 - Essential (primary) hypertension
[2020-07-05] MEDS: DEXAMETHASONE SOD PHOSPHATE 8 MG in SYRINGE 0 ML IV SCH (07:59)
[2020-07-05 08:28] LABS: Hematocrit (blood only) 37.3 % (42-52); Hemoglobin 12.3 g/dL (14.0-18.0); Immature Granulocytes # (auto) 0.06 K/uL (0.00-0.02); Immature Granulocytes % (auto) 0.5 %; Lymphocytes # (auto) 0.88 K/uL (1.2-3.4); Lymphocytes % (auto) 7.2 %; Mean Corpuscular Hemoglobin 31.1 pg (25-34); Mean Corpuscular Volume 94.4 fL (80-100); Mean Platelet Volume 11.4 fL (7.4-10.4); Monocytes # (auto) 0.73 K/uL (0.11-0.59); Neutrophils # (auto) 10.59 K/uL (1.4-6.5); Neutrophils % (auto) 86.3 %; Platelet Count 173 K/uL (130-400); RDW Coefficient of Variation 14.4 % (11.5-14.5); RDW Standard Deviation 49.6 fL (36.4-46.3); Red Blood Count 3.95 M/uL (4.7-6.1); White Blood Count 12.26 K/uL (4.8-10.8)
[2020-07-05 08:41] LABS: INR 1.1 (0.9-1.1); Prothrombin Time 11.8 Seconds (9.0-12.0)
[2020-07-05 09:01] LABS: BUN Creatinine Ratio 27.8 (10-20); Calcium 9.2 mg/dl (8.5-10.1); Creatinine Clr Calc Pharmacy 112.2 ml/min; Est GFR (African American) 101.8; Est GFR (Non-African American) 87.8; Potassium 4.8 mmol/L (3.5-5.1)
--- NOTE | 2020-07-05 09:45 | Orthopedic Progress Note ---
Date of Service July 05, 2020 Assessment & Plan (1) Cauda equina syndrome: Admission and Anticipated Discharge Date Admission Date: This time we will continue with physical therapy monitor his GLORIA output anticipate discharge home in the next day or so. July 04, 2020 Subjective Patient's back pain controlled leg symptoms markedly improved. He is also noting improvement of his numbness in the perineal area. He is urinating without difficulty. Physical Exam Physical Exam: On exam patient is able to up out of bed without difficulty. Is ambulating without difficulty. Results & Data ([facility]) Vital Signs (Past 12 Hours) Vital Signs Temp Pulse Pulse Resp BP Pulse Ox 07/05/20 08:27 36.6 C 81 19 135/88 96 07/05/20 06:53 36.9 C 89 16 122/73 99 07/05/20 02:57 36.8 C 67 18 134/87 98 07/05/20 02:18 69 18 97 07/05/20 00:25 74 18 99 07/04/20 22:59 36.8 C 84 16 113/66 97
--- NOTE | 2020-07-05 16:31 | Billing Data ---
Date of Service July 05, 2020 Coding Level of Care Code 68024 Subseq Hosp Care Lvl 2
[2020-07-05] MEDS: oxyCODONE HCL IR 5 MG TAB (IMMEDIATE RELEASE) PO PRN (19:50)
[2020-07-05] MEDS: DOCUSATE SODIUM/SENNA 50/8.6MG TAB PO SCH (20:56)
[2020-07-05] MEDS: amLODIPine BESYLATE 5 MG TAB PO SCH (20:56)
[2020-07-05] MEDS: PARoxetine HCL 20 MG TAB PO SCH (20:56)
[2020-07-06] MEDS: oxyCODONE HCL IR 5 MG TAB (IMMEDIATE RELEASE) PO PRN (05:42)
[2020-07-06] MEDS: POLYETHYLENE (MIRALAX) 17 GM PACK PO SCH (05:43)
--- NOTE | 2020-07-06 08:37 | Discharge Summary ---
Date of Service July 06, 2020 Admission HPI Per Admitting Provider Tl Vega is a pleasant 50yo C male presenting with worsening numbness and tingling in the setting of chronic back pain. Patient reports that over the last 3-4 months he has been experiencing worsening low back pain. He saw his PCP for this issue on 04/11/20 and was given a 12 day prednisone taper. He reported fairly rapid improvement in his symptoms at that time. He was seen by Orthopedics on 05/19/20 and was treated with two additional courses of steroids. He had caudal epidural steroid injection performed on 06/16/[address] Thompson from Pain Management. He reports that over the last 4 days he has had improvement in the pain but has developed significant numbness of the lateral LLE starting from the hip and extending to lateral toes. He reports decreased perineal sensation and decreased sensation with urination. He reports constipation and possibly some fecal retention, difficulty passing stool. Denies weakness of the legs or imbalance. No history of trauma. No history of infection, IVDU. Not on anticoagulation. No additional complaints at this time. ER Course: Dexamethasone 8mg IV. ER discussed with Ortho-Spine - recommended admission to medical service, continued steroids and surgical assessment in AM Admission Exam Per Admitting Provider General: patient resting comfortably, NAD, non-toxic in appearance, AA&O x 4 Skin: warm, dry, intact, no rashes or lesions HEENT: NC/AT, PERRL, EOMI, anicteric sclera, conjunctiva without injection, external ear normal to inspection and nontender, nares patent, moist mucus membranes, dentition intact, no oropharyngeal lesions, neck supple, trachea midline, no LAD, no thyromegaly, no JVD Heart: +S1/S2, regular, no m/r/g Lungs: equal air entry bilaterally, no rales/rhonchi/wheezes Abd: +BS, soft, NT/ND, no masses/organomegaly/ascites Ext: warm, 2+ pulses in UE/LE bilaterally, no clubbing/cyanosis or edema Neuro: AA&O x 4, MS 5/5 in UE/LE bilaterally, patellar reflexes of LE intact bilaterally, no clonus, diminished sensation to light touch of LLE on anterior/lateral thigh, anterior/lateral leg and dorsum of left foot - most consistent with L4-S1 distribution Principal Diagnosis Cauda Equina Syndrome Discharge Exam Constitutional well developed, well nourished, + obese and cooperative; no acute distress Eyes + anicteric sclerae ENMT external ear and nose normal, oropharynx normal Neck normal visual inspection and trachea midline Respiratory normal respiratory effort, lungs clear to auscultation Cardiovascular RRR, no murmur, no edema Heart Sounds: normal S1 and normal S2 Extremities: no pedal edema Gastrointestinal (Abdomen) normal bowel sounds, soft, nontender, no hepatosplenomegaly Musculoskeletal Spine: no lumbar spinal tenderness and no paraspinal tenderness Skin no rashes, warm and dry Neurologic Motor/Sensory: + sensory deficit (Left LE, lateral aspect of foot. ) Discharge Data Allergies Allergy/AdvReac Type Severity Reaction Status Date / Time No Known Drug Allergies Allergy Verified 07/03/20 23:13 Consultations 07/04/20 02:47 Consult Orthopedic Surgery Routine 07/04/20 16:11 Consult Case Management - Discharge Planning Routine Procedures Performed Operation Date: 07/04/20 09:15 Actual Procedures p L4-L5, L5-S1 Decompression and Fusion with Interbody Cage L4-L5, L5-S1; Spinal Cord Monitoring - Juwan Ambrose DO Ordered Studies 07/03/20 21:40 MR lumbar spine wo con Urgent 07/04/20 12:00 FL fluoroscopy <1hr Routine FL lumbar spine 2-3V Routine Hospital Course (1) Cauda equina syndrome: Mr. Vega is a 50 yo M who known lumbar disc disease who presented with new onset numbness of the low back and left leg, along with urinary retention. Lumbar spine MRI on admission showing significant progression of L4-L5 disc herniation with caudal migration and severe stenosis of the canal. Patient was urgently taken to the OR yesterday for decompression and fusion. Today is POD 2, he is currently pain free and notes improved ability to urinate and improvement in his numbness. - patient followed with Dr. Ambrose as an outpatient - underwent epidural injection this fall with only minimal relief - reported significant lumbar pain 4 days [employer] with new onset numbness, difficulty with ambulation, and urinary retention (red flag sign) - Lumbar spine MRI on admission showing significant progression of L4-L5 disc herniation with caudal migration and severe stenosis of the canal - Ortho/Spine consulted, s/p urgent decompression with complete discectomy at L4-L5 and L5-S1 with fusion on 07/04; treated appropriately with intra-operative antibiotics, no complications. Currently POD 2. GOLRIA drain removed today. - patient received two days of IV dexamethasone - Tylenol and/or ibuprofen prn for pain - outpatient follow up arranged with Dr. Ambrose (2) Lumbar disc disease: - patient with known disc disease at L4-L5 and L5-S1 - progression noted on L-spine MRI on admission - s/p surgery as above (3) Hypertension: - continue home dose amlodipine (4) Sleep apnea: - CPAP qhs (5) Anxiety: - continue home dose paroxetine Total Time Total Time Spent Total Time Spent (In Minutes): It required greater than 30 minutes to prepare this patient for discharge Discharge Plan Discharge Items Patient Disposition: Home - Self-Care Reason For Visit: LUMBAR RADICULOPATHY, WORSENING NUMBNESS Discharge Diagnosis: Lumbar disc herniation Condition on Discharge: Good Activity: Resume your previous activity Non-emergency contact: Primary Care Provider and Surgeon Call non-emergency contact if: you have any medication questions Follow-up/Referrals: Celestino Acevedo III, MD [Primary Care Provider] - Diet: Heart Healthy Addtl Attending Provider Instructions: You were hospitalized at [facility] for numbness in your low back and and legs. On arrival, an MRI of your lumbar spine was ordered and showed significant progression of your known L4-L5 disc herniation and severe stenosis of the canal. Dr. Ambrose was consulted and urgently took you to the OR for surgery. He performed spinal decompression and fusion at both the L4-L5 and L5-S1 levels of your spine- after the surgery you were treated with an anti-inflammatory medica tion and IV steroids. You were free of pain after the procedure, your numbness began to recede, and you were able to urinate without difficulty. You were evaluated by physical therapy, who noted some weakness in your pelvic stabilizer muscles. Continued physial therapy as an outpatient is recommended for strengthening. If your pain returns after leaving the hospital, you were provided with scripts for tramadol and oxycodone. You may use as needed - but be sure to not drive a motor vehicle after taking, as these medications can make you drowsy. Please follow up with Dr. Ambrose as an outpatient. Pending Studies at Discharge: No Stand-Alone Forms: My [facility], Opioid Pain Management, Smoking Cessation Medications and DC Order Prescriptions: New tramadol 50 mg tablet 50 mg PO Q6H PRN (Reason: pain, moderate) Qty: 30 RF: 0 oxycodone 5 mg tablet 5 mg PO Q6H PRN (Reason: pain, severe) Qty: 20 RF: 0 Continued paroxetine HCl 20 mg tablet 20 mg PO HS Qty: 90 RF: 3 amlodipine 5 mg tablet 5 mg PO HS Qty: 90 RF: 3 cetirizine [Zyrtec] 10 mg Tablet 10 mg PO DAILY RF: 0 Discontinued cyclobenzaprine 10 mg tablet 10 mg PO TID PRN (Reason: muscle spasm) Qty: 30 RF: 1 Discharge Orders: Discharge Order (Routine); Ordered 07/06/20 Ordered By: Juwan Robertson/Other Patient Handouts: Preventing Deep Vein Thrombosis Admission Data Admit Date/Time: 07/04/20 01:08 Attending Provider: Dillon Mares Admit Provider: Ce Alvarez Primary Care Provider: Celestino Acevedo III Other Providers: Ce Alvarez ; Juwan Ambrose Other Interventions: Discharge Summary Assessment (RN) Last Done: 07/06/20 10:10 Supervising Physician Co-Signing Physician Notes Resident Physician Supervision Note: I was present with Dr. Karen Acosta during the history and exam. I discussed the case with the resident and agree with the findings and plan as documented in the note. Any exceptions or clarifications are listed here: none Patient was seen in his room he is feeling much better he still had his drain in place expecting it to be removed today. He is ambulating longer and longer distances every day still having some minor residual numbness to the outside of his left foot but this is improving daily. He is controlled bowel or bladder function. Patient is be stable to be discharged home with follow-up with Dr. Ambrose. It required greater than 30 minutes to prepare this patient for discharge Documented By: Dillon Mares MD Resident Activity Tracking Resident Involvement: Resident Care Provided Care Provided: Adult [facility]
[2020-07-06] MEDS ORDERED: DEXAMETHASONE SOD PHOSPHATE 8 MG in SYRINGE 0 ML IV SCH (09:00)
--- NOTE | 2020-07-06 09:25 | Orthopedic Progress Note ---
Date of Service July 06, 2020 Assessment & Plan (1) Cauda equina syndrome: Admission and Anticipated Discharge Date Admission Date: July 04, 2020 This time we will continue physical therapy this morning maintain his GLORIA drain. Allow him to discharge home this afternoon. We will take his drain out prior to discharge. Subjective Patient's back pain is controlled. He feels that there is perineal numbness and leg numbness is steadily improving. Physical Exam Physical Exam: On exam he has good strength testing appears comfortable. Results & Data ([facility]) Vital Signs (Past 12 Hours) Vital Signs Temp Pulse Resp BP BP Pulse Ox 07/06/20 08:22 36.5 C 73 16 144/91 H 97 07/05/20 23:34 36.8 C 76 16 155/91 H 95
--- NOTE | 2020-07-06 12:40 | Billing Data ---
Date of Service June 13 it required greater than 30 minutes to prepare this patient for discharge 2019 Coding Level of Care Code D/C Day Management >30 mins
== END 2020-07-06 14:50 | disposition home or self-care (01) | DRG 454 ==
LOC: ED 21:12 → SUATTDRO 07-04 01:08 → 3W 07-04 01:08